=== PATIENT | female | born 1980 | race American Indian/Alaskan Native ===

== ENCOUNTER 2018-08-22 10:21 | Emergency (ER) | payer MEDICAID ==
[2018-08-22] MEDS ORDERED: IBUPROFEN PO ONE (11:38)
--- NOTE | 2018-08-22 11:39 | Emergency Department Report ---
HPI - General Chief Complaint: Chest Pain Time Seen by Provider: 08/22/18 11:20 - HPI HPI: This is a 38-year-old female with a history of hypertension 3 atenolol 50 mg daily presents ED complaining of chest pain for the past 2 days. Patient states chest pain is localized to her mid sternal chest area and describes as a dull ache type pain that the year with sitting or standing. Patient states that pain is worsened with walking short distances. Patient denies recent upper respiratory infection, coughing, fever, shortness of breath. ED Past Medical Hx - Past Medical History Previous Medical History?: Yes Hx Seizures: Yes - Surgical History Past Surgical History?: Yes Additional Surgical History: "thyroid surgery" & "cyst removal" - Social History Smoking Status: Never Smoker Substance Use Type: None - Medications Home Medications: Home Medications Medication Instructions Recorded Confirmed Last Taken Type Acetaminophen/Codeine 1 tab PO Q6H PRN #10 tab 07/17/14 Unknown Rx [Acetaminophen-Codeine #3 TAB] Promethazine [Phenergan] 25 mg PO Q6H PRN #10 tablet 07/17/14 Unknown Rx Cyclobenzaprine [Flexeril 10 MG 10 mg PO TID PRN #20 tablet 08/22/18 Unknown Rx TAB] Naproxen [Naprosyn] 500 mg PO BID #30 tablet 08/22/18 Unknown Rx ED Review of Systems ROS: Stated complaint: CHEST PAIN/ANKLE PAIN Other details as noted in HPI Constitutional: denies: chills, fever Eyes: denies: eye pain, eye discharge, vision change ENT: denies: ear pain, throat pain Respiratory: denies: cough, shortness of breath, wheezing Cardiovascular: chest pain. denies: palpitations Endocrine: no symptoms reported Gastrointestinal: denies: abdominal pain, nausea, diarrhea Genitourinary: denies: urgency, dysuria, discharge Musculoskeletal: denies: back pain, joint swelling, arthralgia Physical Exam - Physical Exam Vital Signs: Vital Signs 08/22/18 10:28 Temperature 97.7 F Pulse Rate 71 Respiratory 16 Rate Blood Pressure 140/92 O2 Sat by Pulse 98 Oximetry Physical Exam: GENERAL: Alert and oriented x3, no apparent distress, Normal Gait, atraumatic. HEAD: Head is normocephalic and a-traumatic. MOUTH:Mouth is well hydrated and without lesions. Tonsils nonerythematous or swollen, Uvula midline, Tongue not elevated. Mucous membranes are moist. Posterior pharynx clear, no exudate or lesions. Patent airways. NECK: Supple. Non edematous, No carotid bruits. No lymphadenopathy or thyromegaly. No C-spine tenderness LUNGS: Symetrical with respiration, No wheezing, no rales or crackles, CTAB. HEART: S1, S2 present, regular rate and rhythm without murmur, no rubs, no gallops. Non tender to palpation SKIN: Warm and dry, No lesions, No ulceration or induration present. ED Course Vital Signs 08/22/18 10:28 Temperature 97.7 F Pulse Rate 71 Respiratory 16 Rate Blood Pressure 140/92 O2 Sat by Pulse 98 Oximetry - Reevaluation(s) Reevaluation #1: Discussed with patient about her elevated d-dimer, discussed the patient will have to rule out PE. Patient understands instructions she is stable she is in no acute distress CTA pending 08/22/18 15:34 ED Medical Decision Making - Lab Data Result diagrams: 08/22/18 11:47 08/22/18 11:47 - Radiology Data Radiology results: report reviewed, image reviewed FINAL REPORT EXAM: CT ANGIO CHEST HISTORY: elev d dimer TECHNIQUE: Following IV administration of 100 cc of Omnipaque 350 axial helical imaging was performed through the chest with sagittal and coronal reformatted images and maximum intensity projection images obtained. Comparison: None FINDINGS: There is no evidence of infiltrate, pneumothorax or pleural fluid collection. The trachea and bronchi are patent. The heart appears to be enlarged. The thoracic aorta is normal caliber. There is no evidence of intrathoracic adenopathy. No filling defects are demonstrated within the pulmonary arteries to suggest the presence of pulmonary artery emboli. The visualized portion of the upper abdomen is unremarkable. The bony structures are unremarkable in appearance. IMPRESSION: 1. No evidence of an acute intrathoracic process. 2. No evidence of pulmonary artery emboli. 3. Cardiomegaly. Transcribed By: ED Dictated By: LOURDES RUBIO MD Electronically Authenticated By: LOURDES RUBIO MD Signed Date/Time: 08/22/18 4256 - Medical Decision Making This is a 38-year-old female presents with chest pain Labs ordered, chest x-ray ordered. Chest x-ray negative D-dimer elevated, CTA chest negative, see reported above of pulmonary embolism. Discussed with patient to follow up with her heart doctor theoretical physics teacher Dr. Cosme Patient is in no acute or respiratory distress. Vital signs are normal Patient did mention that she had her right ankle injury month in 2 days ago when she was seen at [facility]. Patient was followed up by her orthopedic institute in her primary care physician wanted a CT scan of her ankle. I discussed with the patient should is to follow-up with her orthopedic doctor and get an CT scan of her ankle outpatient. I did examine her ankle ankle was intact joint intact, mildly tender to palpation, patient is able to ambulate on her feet on her own. Patient states she understands instructions and will follow. The patient evidently new onset of symptoms or worsening symptoms return to the ED immediately Critical care attestation.: If time is entered above; I have spent that time in minutes in the direct care of this critically ill patient, excluding procedure time. ED Disposition Clinical Impression: Costochondral chest pain Disposition: TO HOME OR SELFCARE Is pt being admited?: No Does the pt Need Aspirin: No Condition: Stable Instructions: Chest Pain (ED), Costochondritis (ED) Additional Instructions: Make sure to follow up with the primary care physician as discussed. Take all your medications as you've been prescribed. If you have any worsening symptoms or develop new symptoms please return to ED immediately. Follow-up with your theoretical physics teacher Prescriptions: Cyclobenzaprine [Flexeril 10 MG TAB] 10 mg PO TID PRN #20 tablet PRN Reason: Muscle Spasm Naproxen [Naprosyn] 500 mg PO BID #30 tablet Referrals: RANJITH HAYES NP-C [Primary Care Provider] - 3-5 Days Forms: Work/School Release Form(ED) Time of Disposition: 17:58
[2018-08-22 12:04] LABS: Hematocrit 40.6 % (30.3-42.9); Hemoglobin 13.6 gm/dl (10.1-14.3); Mean Corpuscular HGB Conc 34 % (30-34); Mean Corpuscular Volume 86 fl (79-97); Platelet Count 486 K/mm3 (140-440); Red Blood Count 4.71 M/mm3 (3.65-5.03)
[2018-08-22 12:25] LABS: BUN/Creatinine Ratio 21; Blood Urea Nitrogen 17 mg/dL (7-17); Calcium 8.8 mg/dL (8.4-10.2); Hemolysis Index 17
--- NOTE | 2018-08-22 12:35 | XRay Report ---
ROUTINE CHEST, TWO VIEWS: HISTORY: chest pain. The trachea, heart, mediastinal contour, lung gerber and bony thorax are unremarkable. IMPRESSION: Unremarkable chest x-ray.
--- NOTE | 2018-08-22 17:34 | Cat Scan Report ---
FINAL REPORT EXAM: CT ANGIO CHEST HISTORY: elev d dimer TECHNIQUE: Following IV administration of 100 cc of Omnipaque 350 axial helical imaging was performe d through the chest with sagittal and coronal reformatted images and maximum intensity projection winsome ges obtained. Comparison: None FINDINGS: There is no evidence of infiltrate, pneumothorax or pleural fluid collection. The trachea and bronchi are patent. The heart appears to be enlarged. The thoracic aorta is normal caliber. There is no evidence of intrathoracic adenopathy. No filling defects are demonstrated within the pulmonary arteries to suggest the presence of pulmonar y artery emboli. The visualized portion of the upper abdomen is unremarkable. The bony structures are unremarkable in appearance. IMPRESSION: 1. No evidence of an acute intrathoracic process. 2. No evidence of pulmonary artery emboli. 3. Cardiomegaly.
[2018-08-22 18:29] VITALS: BP 136/88
== END 2018-08-22 18:27 | disposition home or self-care (01) ==
LOC: ED 10:21
DX: R07.1 Chest pain on breathing (principal)
CPT/HCPCS: 36415; 71046; 71275; 80048; 84484; 84703; 85027; 85379; 93005; 93010; 99284; Q9967

== ENCOUNTER 2019-07-28 12:02 | Emergency (ER) | payer MEDICAID ==
[2019-07-28] MEDS ORDERED: KETOROLAC 60 MG/2 ML INJ IVP ONE (13:14)
[2019-07-28] MEDS ORDERED: methylPREDNISolone Sod Succinate 125 MG/2 ML INJ IV ONE (13:14)
--- NOTE | 2019-07-28 13:14 | Emergency Department Report ---
ED General Adult HPI - General Chief complaint: Chest Pain Stated complaint: LFT SIDE TINGLE/CHEST PAIN Time Seen by Provider: 07/28/19 12:34 Source: patient Mode of arrival: Ambulatory Limitations: No Limitations - History of Present Illness Initial comments: Patient presents to emergency department for chief complaint of pain and numbness radiating from her neck into her left arm. She denies any recent injury to her neck but states that it you're ago she fell and hurt her neck. Patient also complains of diffuse chest pain at the present for the last couple days which she saw her rn outpatient surgery for a couple days ago. Denies shortness breath, abdominal pain, or headache. Patient states at times it is difficult to grab a cup with the left hand secondary to numbness and weakness in her left hand. Patient states this has been present for the last couple of months and has discussed it with her primary care physician. Severity scale (0 -10): 8 - Related Data Previous Rx's Medication Instructions Recorded Last Taken Type Acetaminophen/Codeine 1 tab PO Q6H PRN #10 tab 07/17/14 Unknown Rx [Acetaminophen-Codeine #3 TAB] Promethazine [Phenergan] 25 mg PO Q6H PRN #10 tablet 07/17/14 Unknown Rx Cyclobenzaprine [Flexeril 10 MG 10 mg PO TID PRN #20 tablet 08/22/18 Unknown Rx TAB] Naproxen [Naprosyn] 500 mg PO BID #30 tablet 08/22/18 Unknown Rx Ibuprofen [Motrin] 800 mg PO Q8HR PRN #30 tablet 07/28/19 Unknown Rx predniSONE [Deltasone] 20 mg PO DAILY #15 tablet 07/28/19 Unknown Rx Allergies Allergy/AdvReac Type Severity Reaction Status Date / Time No Known Allergies Allergy Unverified 07/17/14 15:34 ED Review of Systems ROS: Stated complaint: LFT SIDE TINGLE/CHEST PAIN Other details as noted in HPI Comment: All other systems reviewed and negative Constitutional: denies: chills, fever Eyes: denies: eye pain, eye discharge, vision change ENT: denies: ear pain, throat pain Respiratory: denies: cough, shortness of breath, wheezing Cardiovascular: denies: chest pain, palpitations Endocrine: no symptoms reported Gastrointestinal: denies: abdominal pain, nausea, diarrhea Genitourinary: denies: urgency, dysuria, discharge Musculoskeletal: denies: back pain, joint swelling, arthralgia Skin: denies: rash, lesions Neurological: denies: headache, weakness, paresthesias Psychiatric: denies: anxiety, depression Hematological/Lymphatic: denies: easy bleeding, easy bruising ED Past Medical Hx - Past Medical History Previous Medical History?: Yes Hx Seizures: Yes Additional medical history: tachycardia, palpitations. sees cardioligist - Surgical History Past Surgical History?: Yes Additional Surgical History: "thyroid surgery" & "cyst removal" - Social History Smoking Status: Never Smoker Substance Use Type: None - Medications Home Medications: Home Medications Medication Instructions Recorded Confirmed Last Taken Type Acetaminophen/Codeine 1 tab PO Q6H PRN #10 tab 07/17/14 Unknown Rx [Acetaminophen-Codeine #3 TAB] Promethazine [Phenergan] 25 mg PO Q6H PRN #10 tablet 07/17/14 Unknown Rx Cyclobenzaprine [Flexeril 10 MG 10 mg PO TID PRN #20 tablet 08/22/18 Unknown Rx TAB] Naproxen [Naprosyn] 500 mg PO BID #30 tablet 08/22/18 Unknown Rx Ibuprofen [Motrin] 800 mg PO Q8HR PRN #30 tablet 07/28/19 Unknown Rx predniSONE [Deltasone] 20 mg PO DAILY #15 tablet 07/28/19 Unknown Rx ED Physical Exam - General Limitations: No Limitations General appearance: alert, in no apparent distress - Head Head exam: Present: atraumatic, normocephalic - Eye Eye exam: Present: normal appearance, PERRL, EOMI - ENT ENT exam: Present: mucous membranes moist - Neck Neck exam: Present: normal inspection, other (able to re-create symptoms with tapping of the C-spine at the midline.) - Respiratory Respiratory exam: Present: normal lung sounds bilaterally. Absent: respiratory distress - Cardiovascular Cardiovascular Exam: Present: regular rate, normal rhythm. Absent: systolic murmur, diastolic murmur, rubs, gallop - GI/Abdominal GI/Abdominal exam: Present: soft, normal bowel sounds. Absent: distended, tenderness - Extremities Exam Extremities exam: Present: normal inspection - Back Exam Back exam: Present: normal inspection - Neurological Exam Neurological exam: Present: alert, oriented X3, CN II-XII intact. Absent: motor sensory deficit - Psychiatric Psychiatric exam: Present: normal affect, normal mood - Skin Skin exam: Present: warm, dry, intact, normal color. Absent: rash ED Course Vital Signs 07/28/19 07/28/19 07/28/19 12:25 14:55 15:00 Temperature 98.7 F Pulse Rate 78 73 Respiratory 16 17 Rate Blood Pressure 131/85 128/81 O2 Sat by Pulse 99 98 96 Oximetry 07/28/19 07/28/19 07/28/19 15:15 15:30 15:45 Temperature Pulse Rate 73 73 73 Respiratory 16 13 15 Rate Blood Pressure 128/81 133/83 133/83 O2 Sat by Pulse 97 98 97 Oximetry 07/28/19 07/28/19 07/28/19 16:00 16:15 16:30 Temperature Pulse Rate 77 72 74 Respiratory 16 15 27 H Rate Blood Pressure 128/77 128/77 126/79 O2 Sat by Pulse 92 97 91 Oximetry ED Medical Decision Making - Lab Data Result diagrams: 07/28/19 13:29 07/28/19 13:29 Lab Results 07/28/19 07/28/19 07/28/19 Range/Units 13:29 13:29 13:29 WBC 15.2 H (4.5-11.0) K/mm3 RBC 4.74 (3.65-5.03) M/mm3 Hgb 13.4 (10.1-14.3) gm/dl Hct 40.2 (30.3-42.9) % MCV 85 (79-97) fl MCH 28 (28-32) pg MCHC 33 (30-34) % RDW 14.9 (13.2-15.2) % Plt Count 534 H (140-440) K/mm3 Lymph % (Auto) 20.0 (13.4-35.0) % Bertie % (Auto) 5.4 (0.0-7.3) % Eos % (Auto) 1.2 (0.0-4.3) % Baso % (Auto) 1.2 (0.0-1.8) % Lymph # 3.0 (1.2-5.4) K/mm3 Bertie # 0.8 (0.0-0.8) K/mm3 Eos # 0.2 (0.0-0.4) K/mm3 Baso # 0.2 H (0.0-0.1) K/mm3 Seg Neutrophils % 72.2 H (40.0-70.0) % Seg Neutrophils # 11.0 H (1.8-7.7) K/mm3 PT 13.6 (12.2-14.9) Sec. INR 1.05 (0.87-1.13) APTT 27.1 (24.2-36.6) Sec. Sodium 136 L (137-145) mmol/L Potassium 4.3 (3.6-5.0) mmol/L Chloride 98.2 (98-107) mmol/L Carbon Dioxide 25 (22-30) mmol/L Anion Gap 17 mmol/L BUN 16 (7-17) mg/dL Creatinine 0.9 (0.7-1.2) mg/dL Estimated GFR > 60 ml/min BUN/Creatinine Ratio 18 % Glucose 83 (65-100) mg/dL Calcium 8.7 (8.4-10.2) mg/dL Total Bilirubin (0.1-1.2) mg/dL Direct Bilirubin (0-0.2) mg/dL Indirect Bilirubin mg/dL AST (5-40) units/L ALT (7-56) units/L Alkaline Phosphatase (35-129) units/L Troponin T < 0.010 (0.00-0.029) ng/mL Total Protein (6.3-8.2) g/dL Albumin (3.9-5) g/dL Albumin/Globulin Ratio % HCG, Qual (Negative) 07/28/19 07/28/19 07/28/19 Range/Units 13:29 13:29 16:11 WBC (4.5-11.0) K/mm3 RBC (3.65-5.03) M/mm3 Hgb (10.1-14.3) gm/dl Hct (30.3-42.9) % MCV (79-97) fl MCH (28-32) pg MCHC (30-34) % RDW (13.2-15.2) % Plt Count (140-440) K/mm3 Lymph % (Auto) (13.4-35.0) % Bertie % (Auto) (0.0-7.3) % Eos % (Auto) (0.0-4.3) % Baso % (Auto) (0.0-1.8) % Lymph # (1.2-5.4) K/mm3 Bertie # (0.0-0.8) K/mm3 Eos # (0.0-0.4) K/mm3 Baso # (0.0-0.1) K/mm3 Seg Neutrophils % (40.0-70.0) % Seg Neutrophils # (1.8-7.7) K/mm3 PT (12.2-14.9) Sec. INR (0.87-1.13) APTT (24.2-36.6) Sec. Sodium (137-145) mmol/L Potassium (3.6-5.0) mmol/L Chloride (98-107) mmol/L Carbon Dioxide (22-30) mmol/L Anion Gap mmol/L BUN (7-17) mg/dL Creatinine (0.7-1.2) mg/dL Estimated GFR ml/min BUN/Creatinine Ratio % Glucose (65-100) mg/dL Calcium (8.4-10.2) mg/dL Total Bilirubin 0.30 (0.1-1.2) mg/dL Direct Bilirubin < 0.2 (0-0.2) mg/dL Indirect Bilirubin 0.1 mg/dL AST 14 (5-40) units/L ALT 25 (7-56) units/L Alkaline Phosphatase 50 (35-129) units/L Troponin T < 0.010 (0.00-0.029) ng/mL Total Protein 7.2 (6.3-8.2) g/dL Albumin 4.2 (3.9-5) g/dL Albumin/Globulin Ratio 1.4 % HCG, Qual Negative (Negative) - EKG Data -: EKG Interpreted by Al EKG shows normal: sinus rhythm Rate: normal - Radiology Data Radiology results: report reviewed - Medical Decision Making Patient politely declined chest x-ray stating she just had one recently Results discussed in detail with the patient She states she has her appointment with her primary care physician tomorrow at [facility] Critical care attestation.: If time is entered above; I have spent that time in minutes in the direct care of this critically ill patient, excluding procedure time. ED Disposition Clinical Impression: Nonspecific chest pain, Cervical radiculopathy Disposition: DC- TO HOME OR SELFCARE Is pt being admited?: No Does the pt Need Aspirin: No Condition: Stable Instructions: Noncardiac Chest Pain (ED), Cervical Radiculopathy (ED) Additional Instructions: return if worse Referrals: [facility] [Provider Group] - 3-5 Days [facility] [Provider Group] - 3-5 Days Time of Disposition: 17:01
[2019-07-28 14:05] LABS: Basophils # (Auto) 0.2 K/mm3 (0.0-0.1); Basophils % (Auto) 1.2 % (0.0-1.8); Eosinophils # (Auto) 0.2 K/mm3 (0.0-0.4); Eosinophils % (Auto) 1.2 % (0.0-4.3); Hematocrit 40.2 % (30.3-42.9); Hemoglobin 13.4 gm/dl (10.1-14.3); Mean Corpuscular HGB Conc 33 % (30-34); Mean Corpuscular Volume 85 fl (79-97); Monocytes # (Auto) 0.8 K/mm3 (0.0-0.8); Monocytes % (Auto) 5.4 % (0.0-7.3); Platelet Count 534 K/mm3 (140-440); Red Blood Count 4.74 M/mm3 (3.65-5.03); Red Cell Distribution Width 14.9 % (13.2-15.2)
[2019-07-28 14:12] LABS: BUN/Creatinine Ratio 18; Blood Urea Nitrogen 16 mg/dL (7-17); Calcium 8.7 mg/dL (8.4-10.2); Hemolysis Index 14; INR 1.05 (0.87-1.13); Partial Thromboplastin Time 27.1 Sec. (24.2-36.6)
[2019-07-28 14:14] LABS: Alanine Aminotransferase 25 units/L (7-56); Albumin 4.2 g/dL (3.9-5)
[2019-07-28 14:18] LABS: Bilirubin,Direct < 0.2 mg/dL (0-0.2)
--- NOTE | 2019-07-28 15:09 | XRay Report ---
CERVICAL SPINE, 4 VIEWS INDICATION: cervical radiculopathy UPT. COMPARISON: None. IMPRESSION: Normal alignment. No significant discogenic DJD or facet arthropathy. No acute osseous or soft tissue abnormality. Signer Name: Del Godinez Jr, MD Signed: 07/28/2019 3:05 PM Workstation Name: [id number]
[2019-07-28 16:54] VITALS: BP 126/79
== END 2019-07-28 17:14 | disposition home or self-care (01) ==
LOC: ED 12:02
DX: M54.12 Radiculopathy, cervical region (principal); R07.89 Other chest pain; G40.909 Epilepsy, unspecified, not intractable, without status epilepticus; R00.0 Tachycardia, unspecified; Z79.1 Long term (current) use of non-steroidal anti-inflammatories (NSAID); Z79.899 Other long term (current) drug therapy
CPT/HCPCS: 36415; 72040; 80048; 80076; 84484; 84703; 85025; 85610; 85730; 93005; 93010; 96374; 96375; 99284; J1885; J2930

== ENCOUNTER 2020-04-25 20:45 | Emergency (ER) | payer SELFPAY ==
--- NOTE | 2020-04-25 20:47 | Emergency Department Report ---
Blank Doc - Documentation Documentation: 39-year-old female that presents with body aches, flank pain and hematuria. This initial assessment/diagnostic orders/clinical plan/treatment(s) is/are subject to change based on patient's health status, clinical progression and re- assessment by fellow clinical providers in the ED. Further treatment and workup at subsequent clinical providers discretion. Patient/guardians urged not to elope from the ED as their condition may be serious if not clinically assessed and managed. Initial orders include: 1- Patient sent to [facility] for further evaluation and treatment 2- labs 3- UA
[2020-04-25 21:20] LABS: Basophils # (Auto) 0.1 K/mm3 (0.0-0.1); Eosinophils # (Auto) 0.1 K/mm3 (0.0-0.4); Eosinophils % (Auto) 1.1 % (0.0-4.3); Hematocrit 35.9 % (30.3-42.9); Hemoglobin 12.9 gm/dl (10.1-14.3); Lymphocytes # (Auto) 2.3 K/mm3 (1.2-5.4); Lymphocytes % (Auto) 18.1 % (13.4-35.0); Mean Corpuscular HGB Conc 36 % (30-34); Mean Corpuscular Volume 84 fl (79-97); Monocytes # (Auto) 1.3 K/mm3 (0.0-0.8); Monocytes % (Auto) 10.4 % (0.0-7.3); Platelet Count 513 K/mm3 (140-440); Red Blood Count 4.29 M/mm3 (3.65-5.03); Red Cell Distribution Width 14.7 % (13.2-15.2)
[2020-04-25 21:37] LABS: Bilirubin,Urine NEG (Negative); Blood,Urine MOD (Negative); Color,Urine Yellow (Yellow); Mucus,Urine FEW /HPF; Protein,Urine <15 mg/dL mg/dL (Negative); WBC,Urine > 182.0 /HPF (0.0-6.0)
[2020-04-25 21:40] LABS: BUN/Creatinine Ratio 20; Blood Urea Nitrogen 16 mg/dL (7-17); Calcium 8.9 mg/dL (8.4-10.2); Hemolysis Index 5
[2020-04-25] MEDS ORDERED: cefTRIAXone/NS 1 GM/50 ML 1 GM/50 ML BAG IV ONE (22:13)
[2020-04-25] MEDS ORDERED: SODIUM CHLORIDE 0.9% 1000 ML 1,000 ML IV ONE (22:13)
[2020-04-25] MEDS ORDERED: KETOROLAC 30 MG/1 ML INJ IV ONE (22:13)
--- NOTE | 2020-04-25 23:28 | Emergency Department Report ---
ED Abdominal Pain HPI - General Chief Complaint: Pain General Stated Complaint: BODY PAIN,BLOOD IN URINE Time Seen by Provider: 04/25/20 20:46 Source: patient Mode of arrival: Ambulatory Limitations: No Limitations - History of Present Illness Initial Comments: Patient is a 39-year-old -Maur[place] female with a history of seizures who presents to the ED with complaint of acute onset persistent severe diffuse body aches and pains, dysuria, urinary frequency and urgency, left flank pain and suprapubic pressure for the last 2 days, worse in the last 12 hours. Patient denies vaginal bleeding, vaginal discharge, dyspareunia, dizziness, syncope, f ever, chills, nausea and vomiting, diarrhea, sore throat, chest pain or shortness of breath, headache, change in vision or palpitations. MD Complaint: abdominal pain, flank pain (left ), other (lower back pain) -: Sudden, days(s) (2) Location: suprapubic (pressure), L flank Radiation: suprapubic, back (lower) Migration to: no migration Severity: severe Severity scale (0 -10): 10 Quality: aching, sharp Consistency: constant Improves With: nothing Worsens With: nothing Associated Symptoms: denies other symptoms, nausea, dysuria, anorexia. denies: vomiting, diarrhea, fever, chills, constipation, hematemesis, hematochezia, melena, hematuria, syncope - Related Data LMP (females 10-50): 3 weeks Previous Rx's Medication Instructions Recorded Last Taken Type Acetaminophen/Codeine 1 tab PO Q6H PRN #10 tab 07/17/14 Unknown Rx [Acetaminophen-Codeine #3 TAB] Promethazine [Phenergan] 25 mg PO Q6H PRN #10 tablet 07/17/14 Unknown Rx Cyclobenzaprine [Flexeril 10 MG 10 mg PO TID PRN #20 tablet 08/22/18 Unknown Rx TAB] Naproxen [Naprosyn] 500 mg PO BID #30 tablet 08/22/18 Unknown Rx predniSONE [Deltasone] 20 mg PO DAILY #15 tablet 07/28/19 Unknown Rx Ibuprofen [Motrin 800 MG tab] 800 mg PO Q8HR PRN #30 tablet 04/25/20 Unknown Rx Ondansetron [Zofran Odt] 4 mg PO Q6HR PRN #20 tab.rapdis 04/25/20 Unknown Rx cephALEXin [Keflex] 500 mg PO Q6HR #40 capsule 04/25/20 Unknown Rx Allergies Allergy/AdvReac Type Severity Reaction Status Date / Time No Known Allergies Allergy Unverified 07/17/14 15:34 ED Review of Systems ROS: Stated complaint: BODY PAIN,BLOOD IN URINE Other details as noted in HPI Constitutional: chills, malaise, weakness. denies: fever Eyes: denies: eye pain, eye discharge, vision change ENT: denies: ear pain, throat pain Respiratory: denies: cough, shortness of breath, wheezing Cardiovascular: denies: chest pain, palpitations Endocrine: no symptoms reported Gastrointestinal: abdominal pain (left flank pain). denies: nausea, vomiting, diarrhea, constipation, hematemesis, melena, hematochezia Genitourinary: urgency, dysuria, frequency, hematuria. denies: discharge Musculoskeletal: back pain, arthralgia, myalgia. denies: joint swelling Skin: denies: rash, lesions Neurological: denies: headache, weakness, paresthesias Psychiatric: denies: anxiety, depression Hematological/Lymphatic: denies: easy bleeding, easy bruising ED Past Medical Hx - Past Medical History Previous Medical History?: Yes Hx Seizures: Yes Additional medical history: tachycardia, palpitations. sees cardioligist - Surgical History Past Surgical History?: Yes Additional Surgical History: "thyroid surgery" & "cyst removal", TUBILIGATION - Social History Smoking Status: Never Smoker Substance Use Type: None - Medications Home Medications: Home Medications Medication Instructions Recorded Confirmed Last Taken Type Acetaminophen/Codeine 1 tab PO Q6H PRN #10 tab 07/17/14 Unknown Rx [Acetaminophen-Codeine #3 TAB] Promethazine [Phenergan] 25 mg PO Q6H PRN #10 tablet 07/17/14 Unknown Rx Cyclobenzaprine [Flexeril 10 MG 10 mg PO TID PRN #20 tablet 08/22/18 Unknown Rx TAB] Naproxen [Naprosyn] 500 mg PO BID #30 tablet 08/22/18 Unknown Rx predniSONE [Deltasone] 20 mg PO DAILY #15 tablet 07/28/19 Unknown Rx Ibuprofen [Motrin 800 MG tab] 800 mg PO Q8HR PRN #30 tablet 04/25/20 Unknown Rx Ondansetron [Zofran Odt] 4 mg PO Q6HR PRN #20 tab.rapdis 04/25/20 Unknown Rx cephALEXin [Keflex] 500 mg PO Q6HR #40 capsule 04/25/20 Unknown Rx ED Physical Exam - General Limitations: No Limitations General appearance: alert, in no apparent distress - Head Head exam: Present: atraumatic, normocephalic, normal inspection - Eye Eye exam: Present: normal appearance, PERRL, EOMI Pupils: Present: normal accommodation - ENT ENT exam: Present: normal exam, normal orophraynx, mucous membranes moist, TM's normal bilaterally, normal external ear exam - Neck Neck exam: Present: normal inspection, full ROM - Respiratory Respiratory exam: Present: normal lung sounds bilaterally. Absent: respiratory distress, wheezes, rales, rhonchi, chest wall tenderness, accessory muscle use, prolonged expiratory - Cardiovascular Cardiovascular Exam: Present: regular rate, normal rhythm, normal heart sounds. Absent: systolic murmur, diastolic murmur, rubs, gallop - GI/Abdominal GI/Abdominal exam: Present: soft, tenderness (Palpable left flank tenderness), normal bowel sounds. Absent: guarding, rebound, hyperactive bowel sounds, hypoactive bowel sounds - Extremities Exam Extremities exam: Present: normal inspection, full ROM, normal capillary refill - Back Exam Back exam: Present: normal inspection, full ROM. Absent: tenderness, CVA tenderness (R), muscle spasm, paraspinal tenderness, vertebral tenderness - Neurological Exam Neurological exam: Present: alert, oriented X3, CN II-XII intact, normal gait, reflexes normal - Psychiatric Psychiatric exam: Present: normal affect, normal mood - Skin Skin exam: Present: warm, dry, intact, normal color. Absent: rash ED Course Vital Signs 04/25/20 20:49 Temperature 98 F Pulse Rate 84 Respiratory 18 Rate Blood Pressure 122/75 O2 Sat by Pulse 100 Oximetry ED Medical Decision Making - Lab Data Result diagrams: 04/25/20 21:01 04/25/20 21:01 - Medical Decision Making This is a 39-year-old -Maur[place] female with a history of seizures who presents to the ED with complaint of acute onset persistent severe diffuse body aches and pains, dysuria, urinary frequency and urgency, left flank pain and suprapubic pressure for the last 2 days, worse in the last 12 hours. In the ED, patient is alert and oriented x3 and is not in any distress but appears to be in pain. Lab test results were reviewed and are all nonactionable except for acute leukocytosis of 12,500, mild hyponatremia of 134 mmol/L and significant urinary tract infection and urinalysis characterized by large leukocyte esterase and >182 WBCs. Patient was treated in the ED with normal saline 1 L IV bolus x1, antiemetics, pain medication and also started on Rocephin 1 g IV x1. On reevaluation, patient's pain is well controlled medications. Patient was discharged home on pain medications and oral antibiotics and was advised to follow-up with her primary care physician in 5 to 7 days for reevaluation or return to the ED immediately if symptoms get worse. - Differential Diagnosis UTI, muscle spasm, pyelonephritis, colitis, ovarian cyst, kidney stones Critical care attestation.: If time is entered above; I have spent that time in minutes in the direct care of this critically ill patient, excluding procedure time. ED Disposition Clinical Impression: Acute abdominal pain in left flank, Acute urinary tract infection Disposition: DC- TO HOME OR SELFCARE Is pt being admited?: No Does the pt Need Aspirin: No Condition: Stable Instructions: Flank Pain (ED), Urinary Tract Infection in Women (ED) Additional Instructions: Take medication with food, drink plenty of fluids and follow-up with your primary care physician in 5 to 7 days for reevaluation. Return to the ED immediately if symptoms get worse. Prescriptions: cephALEXin [Keflex] 500 mg PO Q6HR #40 capsule Ibuprofen [Motrin 800 MG tab] 800 mg PO Q8HR PRN #30 tablet PRN Reason: Pain Ondansetron [Zofran Odt] 4 mg PO Q6HR PRN #20 tab.rapdis PRN Reason: Nausea Referrals: [facility] [Provider Group] - 3-5 Days Time of Disposition: 23:28 Print Language: ZIMBABWEAN
[2020-04-26 00:09] VITALS: BP 126/80
== END 2020-04-26 00:08 | disposition home or self-care (01) ==
LOC: ED 20:45
DX: N39.0 Urinary tract infection, site not specified (principal)
CPT/HCPCS: 36415; 80048; 81001; 84703; 85025; 96361; 96365; 96375; 99283; J0696; J1885; J7030

== ENCOUNTER 2020-05-28 05:49 | Emergency (ER) | payer SELFPAY ==
[2020-05-28 06:04] VITALS: BP 132/85
[2020-05-28 06:33] LABS: Bilirubin,Urine NEG (Negative); Blood,Urine SM (Negative); Color,Urine Yellow (Yellow); Mucus,Urine FEW /HPF; Protein,Urine <15 mg/dL mg/dL (Negative); Urobilinogen,Urine < 2.0 mg/dL (<2.0)
[2020-05-28 06:35] LABS: HCG Qualitative,Urine Negative (Negative)
--- NOTE | 2020-05-28 07:42 | XRay Report ---
CERVICAL SPINE 4 VIEWS INDICATION / CLINICAL INFORMATION: left neck and shoulder pain. COMPARISON: 07/28/2019 FINDINGS: No fracture, subluxation or other significant abnormality. No interval change. Signer Name: Humberto Cornelius MD Signed: 05/28/2020 7:37 AM Workstation Name: [id number]
--- NOTE | 2020-05-28 08:50 | Emergency Department Report ---
ED Neck Pain/Injury HPI - General Chief Complaint: Neck Pain/Injury Stated Complaint: UTI,LEFT SIDE PAIN Time Seen by Provider: 05/28/20 07:29 Mode of arrival: Ambulatory Limitations: No Limitations - History of Present Illness Initial Comments: 40-year-old -Nepalese female presents to the emergency room complaining of left neck and left shoulder pain with left arm pain that is radiated to the distal fingers x1 month. Patient also states that she was treated for urinary tract infection 1 month ago but continues to have pelvic pressure with urination. Patient reports urinary urgency. She denies any fever no chills no nausea no vomiting no vaginal discharge no vaginal bleeding or hematuria. She states that she has a backache and back pain. 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 She does have a primary care provider her last menstrual period was 05/23/2020. Complaint: neck pain Onset/Timin -: week(s) (4 weeks for urinary tract infection), month(s) (Neck) Radiation: left lateral Severity scale (0 -10): 10 Quality: sharp, tingling Consistency: intermittent Improves With: none Worsens With: none Associated Symptoms: tingling Treatments Prior to Arrival: none - Related Data Previous Rx's Medication Instructions Recorded Last Taken Type Acetaminophen/Codeine 1 tab PO Q6H PRN #10 tab 07/17/14 Unknown Rx [Acetaminophen-Codeine #3 TAB] Promethazine [Phenergan] 25 mg PO Q6H PRN #10 tablet 07/17/14 Unknown Rx Cyclobenzaprine [Flexeril 10 MG 10 mg PO TID PRN #20 tablet 08/22/18 Unknown Rx TAB] Naproxen [Naprosyn] 500 mg PO BID #30 tablet 08/22/18 Unknown Rx predniSONE [Deltasone] 20 mg PO DAILY #15 tablet 07/28/19 Unknown Rx Ibuprofen [Motrin 800 MG tab] 800 mg PO Q8HR PRN #30 tablet 04/25/20 Unknown Rx Ondansetron [Zofran Odt] 4 mg PO Q6HR PRN #20 tab.rapdis 04/25/20 Unknown Rx cephALEXin [Keflex] 500 mg PO Q6HR #40 capsule 04/25/20 Unknown Rx Meloxicam [Mobic] 7.5 mg PO QDAY #30 tablet 05/28/20 Unknown Rx Allergies Allergy/AdvReac Type Severity Reaction Status Date / Time No Known Allergies Allergy Unverified 07/17/14 15:34 ED Review of Systems ROS: Stated complaint: UTI,LEFT SIDE PAIN Other details as noted in HPI Comment: All other systems reviewed and negative ED Past Medical Hx - Past Medical History Previous Medical History?: Yes Hx Seizures: Yes Additional medical history: tachycardia, palpitations. sees cardioligist - Surgical History Past Surgical History?: Yes Additional Surgical History: "thyroid surgery" & "cyst removal", TUBILIGATION, - Social History Smoking Status: Never Smoker Substance Use Type: None - Medications Home Medications: Home Medications Medication Instructions Recorded Confirmed Last Taken Type Acetaminophen/Codeine 1 tab PO Q6H PRN #10 tab 07/17/14 Unknown Rx [Acetaminophen-Codeine #3 TAB] Promethazine [Phenergan] 25 mg PO Q6H PRN #10 tablet 07/17/14 Unknown Rx Cyclobenzaprine [Flexeril 10 MG 10 mg PO TID PRN #20 tablet 08/22/18 Unknown Rx TAB] Naproxen [Naprosyn] 500 mg PO BID #30 tablet 08/22/18 Unknown Rx predniSONE [Deltasone] 20 mg PO DAILY #15 tablet 07/28/19 Unknown Rx Ibuprofen [Motrin 800 MG tab] 800 mg PO Q8HR PRN #30 tablet 04/25/20 Unknown Rx Ondansetron [Zofran Odt] 4 mg PO Q6HR PRN #20 tab.rapdis 04/25/20 Unknown Rx cephALEXin [Keflex] 500 mg PO Q6HR #40 capsule 04/25/20 Unknown Rx Meloxicam [Mobic] 7.5 mg PO QDAY #30 tablet 05/28/20 Unknown Rx ED Physical Exam - General Limitations: No Limitations General appearance: alert, in no apparent distress - Head Head exam: Present: atraumatic, normocephalic - Eye Eye exam: Present: normal appearance - ENT ENT exam: Present: mucous membranes moist - Neck Neck exam: Present: normal inspection - Respiratory Respiratory exam: Present: normal lung sounds bilaterally. Absent: respiratory distress - Cardiovascular Cardiovascular Exam: Present: regular rate, normal rhythm. Absent: systolic murmur, diastolic murmur, rubs, gallop - GI/Abdominal GI/Abdominal exam: Present: soft, tenderness (Suprapubic), normal bowel sounds. Absent: distended - Extremities Exam Extremities exam: Present: normal inspection, full ROM - Back Exam Back exam: Present: normal inspection - Neurological Exam Neurological exam: Present: alert, oriented X3 - Psychiatric Psychiatric exam: Present: normal affect, normal mood - Skin Skin exam: Present: warm, dry, intact, normal color. Absent: rash ED Course Vital Signs 05/28/20 05:58 Temperature 98.6 F Pulse Rate 89 Respiratory 18 Rate Blood Pressure 132/85 O2 Sat by Pulse 96 Oximetry ED Medical Decision Making - Radiology Data Radiology results: report reviewed XRay Report Signed Patient: LACIE WOODS MR#: [id number] 0 : 1980 Acct:[id number] Age/Sex: 40 / F ADM Date: 05/28/20 Loc: ED Attending Dr: Ordering Physician: Deb Pritchard MD Date of Service: 05/28/20 Procedure(s): XR spine cervical 2-3V Accession Number(s): [id number] cc: Deb Pritchard MD Fluoro Time In Minutes: CERVICAL SPINE 4 VIEWS INDICATION / CLINICAL INFORMATION: left neck and shoulder pain. COMPARISON: 07/28/2019 FINDINGS: No fracture, subluxation or other significant abnormality. No interval change. Signer Name: Humberto Cornelius MD Signed: 05/28/2020 7:37 AM Workstation Name: [id number] Transcribed By: TM Dictated By: Humberto Cornelius MD Electronically Authenticated By: Humberto Cornelius MD Signed Date/Time: 05/28/20 0737 DD/ TD/TT: - Medical Decision Making 40-year-old -N[place]alese female presents to the emergency room complaining of left neck and left shoulder pain with left arm pain that is radiated to the distal fingers x1 month. Patient also states that she was treated for urinary tract infection 1 month ago but continues to have pelvic pressure with urination. Patient reports urinary urgency. She denies any fever no chills no nausea no vomiting no vaginal discharge no vaginal bleeding or hematuria. She states that she has a backache and back pain. 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 She does have a primary care provider her last menstrual period was 05/23/2020. X-ray cervical is negative for any acute fractures or subluxations. I do recommend patient to get a MRI from orthopedics. Her urine is negative for any urinary tract infection I recommend to follow-up with her [facility] SECRETARY RECEPTIONIST for further evaluation. Patient has had a tubal ligation with a in the past. Patient can take Mobic 7.5 mg daily and to follow-up with an MEDICAL SECRETARY RECEPTIONIST. Critical care attestation.: If time is entered above; I have spent that time in minutes in the direct care of this critically ill patient, excluding procedure time. ED Disposition Clinical Impression: Cervical strain, acute, Pelvic pressure in female Disposition: DC- TO HOME OR SELFCARE Is pt being admited?: No Does the pt Need Aspirin: No Condition: Stable Additional Instructions: X-ray of neck shows no acute abnormalities I highly recommend following up with a neurologist for further evaluation. I have listed Dr. Baker information below. Your urine is clear there is no signs of infection I recommend following up with a [facility]ICAL SECRETARY RECEPTIONIST I have listed several below for your convenience. I have also given you a prescription for Mobic which is a Gonzalez 2 inhibitor for pain medicine you just take it once a day with food. Prescriptions: Meloxicam [Mobic] 7.5 mg PO QDAY #30 tablet Referrals: ELENA BAKER II, MD [Staff Physician] - 3-5 Days [facility] [Provider Group] - 3-5 Days [facility] [Provider Group] - 3-5 Days [facility] [Provider Group] - 3-5 Days Forms: Work/School Release Form(ED)
== END 2020-05-28 09:24 | disposition home or self-care (01) ==
LOC: ED 05:49
DX: S16.1XXA Strain of muscle, fascia and tendon at neck level, initial encounter (principal); R10.2 Pelvic and perineal pain; G40.909 Epilepsy, unspecified, not intractable, without status epilepticus; Z79.899 Other long term (current) drug therapy; Z98.890 Other specified postprocedural states; X58.XXXA Exposure to other specified factors, initial encounter; Y93.89 Activity, other specified; Y92.89 Other specified places as the place of occurrence of the external cause; Y99.8 Other external cause status
CPT/HCPCS: 72040; 81001; 81025; 99283

== ENCOUNTER 2020-07-27 08:55 | Emergency (ER) | payer MEDICAID, OTHER ==
[2020-07-27 09:30] VITALS: BP 130/97
[2020-07-27] MEDS ORDERED: ASPIRIN 325 MG TAB PO ONE (09:40)
--- NOTE | 2020-07-27 10:29 | XRay Report ---
CHEST 2 VIEWS INDICATION / CLINICAL INFORMATION: Chest Pain. COMPARISON: Chest 2 views and CTA chest from 08/22/2018. FINDINGS: SUPPORT DEVICES: None. HEART / MEDIASTINUM: No significant abnormality. LUNGS / PLEURA: No significant pulmonary or pleural abnormality. No pneumothorax. ADDITIONAL FINDINGS: No significant additional findings. IMPRESSION: 1. No acute abnormality of the chest. Signer Name: Aly Wells MD Signed: 07/27/2020 10:25 AM Workstation Name: [id number]
[2020-07-27 11:01] LABS: Basophils % (Auto) 0.3 % (0.0-1.8); Eosinophils # (Auto) 0.2 K/mm3 (0.0-0.4); Eosinophils % (Auto) 2.9 % (0.0-4.3); Hematocrit 38.7 % (30.3-42.9); Hemoglobin 13.5 gm/dl (10.1-14.3); Lymphocytes # (Auto) 1.9 K/mm3 (1.2-5.4); Lymphocytes % (Auto) 30.2 % (13.4-35.0); Mean Corpuscular HGB Conc 35 % (30-34); Mean Corpuscular Volume 83 fl (79-97); Monocytes # (Auto) 0.5 K/mm3 (0.0-0.8); Monocytes % (Auto) 8.7 % (0.0-7.3); Platelet Count 483 K/mm3 (140-440); Red Blood Count 4.68 M/mm3 (3.65-5.03)
[2020-07-27 11:17] LABS: BUN/Creatinine Ratio 11; Blood Urea Nitrogen 9 mg/dL (7-17); Calcium 9.2 mg/dL (8.4-10.2); Hemolysis Index 3
--- NOTE | 2020-07-27 12:04 | Emergency Department Report ---
ED Chest Pain HPI - General Chief Complaint: Chest Pain Stated Complaint: BP HIGH AND CHEST PAIN PUI?: No Time Seen by Provider: 07/27/20 12:01 Source: patient Mode of arrival: Ambulatory Limitations: No Limitations - History of Present Illness Initial Comments: Patient is a 40-year-old -[place] female who comes to the ER today complaining of chest pain in triage. However, when she got to [facility] she said that she was here because she was concerned because her blood pressure has been trending upwards. She is on antihypertensives for her blood pressure. She did not see her PCP. She did not call her PCP. Her mother stated that she should be checked this morning so she presented to the ER. Patient denies chest pain, shortness of breath, chills, fever, abdominal pain. She denies any neurological symptoms. She is ambulatory and nontoxic on arrival to [facility]. MD Complaint: chest pain Pain Radiation: none Improves With: nothing Worsens With: nothing Aspirin use within the Past 7 Days: (0) No - Related Data On Oral Contraceptives: No Previous Rx's Medication Instructions Recorded Last Taken Type Acetaminophen/Codeine 1 tab PO Q6H PRN #10 tab 07/17/14 Unknown Rx [Acetaminophen-Codeine #3 TAB] Promethazine [Phenergan] 25 mg PO Q6H PRN #10 tablet 07/17/14 Unknown Rx Cyclobenzaprine [Flexeril 10 MG 10 mg PO TID PRN #20 tablet 08/22/18 Unknown Rx TAB] Naproxen [Naprosyn] 500 mg PO BID #30 tablet 08/22/18 Unknown Rx predniSONE [Deltasone] 20 mg PO DAILY #15 tablet 07/28/19 Unknown Rx Ibuprofen [Motrin 800 MG tab] 800 mg PO Q8HR PRN #30 tablet 04/25/20 Unknown Rx Ondansetron [Zofran Odt] 4 mg PO Q6HR PRN #20 tab.rapdis 04/25/20 Unknown Rx cephALEXin [Keflex] 500 mg PO Q6HR #40 capsule 04/25/20 Unknown Rx Meloxicam [Mobic] 7.5 mg PO QDAY #30 tablet 05/28/20 Unknown Rx Allergies Allergy/AdvReac Type Severity Reaction Status Date / Time No Known Allergies Allergy Unverified 07/17/14 15:34 Heart Score - HEART Score History: Slightly suspicious EKG: Normal Age: < 45 Risk factors: > 3 risk factors or hx of atherosclerotic disease Troponin: < normal limit HEART Score: 2 ED Review of Systems ROS: Stated complaint: BP HIGH AND CHEST PAIN Other details as noted in HPI Comment: All other systems reviewed and negative ED Past Medical Hx - Past Medical History Previous Medical History?: Yes Hx Hypertension: Yes Hx Seizures: Yes Additional medical history: tachycardia, palpitations. sees cardioligist, hld - Surgical History Past Surgical History?: Yes Additional Surgical History: "thyroid surgery" & "cyst removal", TUBILIGATION, - Social History Smoking Status: Never Smoker Substance Use Type: None - Medications Home Medications: Home Medications Medication Instructions Recorded Confirmed Last Taken Type Acetaminophen/Codeine 1 tab PO Q6H PRN #10 tab 07/17/14 Unknown Rx [Acetaminophen-Codeine #3 TAB] Promethazine [Phenergan] 25 mg PO Q6H PRN #10 tablet 07/17/14 Unknown Rx Cyclobenzaprine [Flexeril 10 MG 10 mg PO TID PRN #20 tablet 08/22/18 Unknown Rx TAB] Naproxen [Naprosyn] 500 mg PO BID #30 tablet 08/22/18 Unknown Rx predniSONE [Deltasone] 20 mg PO DAILY #15 tablet 07/28/19 Unknown Rx Ibuprofen [Motrin 800 MG tab] 800 mg PO Q8HR PRN #30 tablet 04/25/20 Unknown Rx Ondansetron [Zofran Odt] 4 mg PO Q6HR PRN #20 tab.rapdis 04/25/20 Unknown Rx cephALEXin [Keflex] 500 mg PO Q6HR #40 capsule 04/25/20 Unknown Rx Meloxicam [Mobic] 7.5 mg PO QDAY #30 tablet 05/28/20 Unknown Rx ED Physical Exam - General Limitations: No Limitations General appearance: alert, in no apparent distress - Head Head exam: Present: atraumatic, normocephalic - Eye Eye exam: Present: normal appearance - ENT ENT exam: Present: mucous membranes moist - Neck Neck exam: Present: normal inspection - Respiratory Respiratory exam: Present: normal lung sounds bilaterally. Absent: respiratory distress - Cardiovascular Cardiovascular Exam: Present: regular rate, normal rhythm. Absent: systolic murmur, diastolic murmur, rubs, gallop - GI/Abdominal GI/Abdominal exam: Present: soft, normal bowel sounds - Extremities Exam Extremities exam: Present: normal inspection - Back Exam Back exam: Present: normal inspection - Neurological Exam Neurological exam: Present: alert, oriented X3 - Psychiatric Psychiatric exam: Present: normal affect, normal mood - Skin Skin exam: Present: warm, dry, intact, normal color. Absent: rash ED Course Vital Signs 07/27/20 09:27 Temperature 98.2 F Pulse Rate 76 Respiratory 18 Rate Blood Pressure 130/97 O2 Sat by Pulse 96 Oximetry MAYUR score - Mayur Score Age > 65: (0) No Aspirin use within the Past 7 Days: (0) No 3 or more CAD Risk Factors: (1) Yes 2 or more Angina events in past 24 hrs: (0) No Known CAD with more than 50% Stenosis: (0) No Elevated Cardiac Markers: (0) No ST Deviation Greater than 0.5mm: (0) No MAYUR Score: 1 ED Medical Decision Making - Lab Data Result diagrams: 07/27/20 10:30 07/27/20 10:30 - EKG Data -: EKG Interpreted by [facility] EKG shows normal: sinus rhythm Rate: normal - EKG Data When compared to previous EKG there are: no significant change Interpretation: no acute changes - Radiology Data Radiology results: report reviewed, image reviewed No acute process - Medical Decision Making Vital Signs (72 hours) 07/27/20 09:27 Temperature 98.2 F Pulse Rate 76 Respiratory 18 Rate Blood Pressure 130/97 O2 Sat by Pulse 96 Oximetry Vital Signs 07/27/20 09:27 Temperature 98.2 F Pulse Rate 76 Respiratory 18 Rate Blood Pressure 130/97 O2 Sat by Pulse 96 Oximetry Lab Results 07/27/20 07/27/20 Range/Units 10:30 10:30 WBC 6.2 (4.5-11.0) K/mm3 RBC 4.68 (3.65-5.03) M/mm3 Hgb 13.5 (10.1-14.3) gm/dl Hct 38.7 (30.3-42.9) % MCV 83 (79-97) fl MCH 29 (28-32) pg MCHC 35 H (30-34) % RDW 15.0 (13.2-15.2) % Plt Count 483 H (140-440) K/mm3 Lymph % (Auto) 30.2 (13.4-35.0) % [place] % (Auto) 8.7 H (0.0-7.3) % Eos % (Auto) 2.9 (0.0-4.3) % Baso % (Auto) 0.3 (0.0-1.8) % Lymph # (Auto) 1.9 (1.2-5.4) K/mm3 [place] # (Auto) 0.5 (0.0-0.8) K/mm3 Eos # (Auto) 0.2 (0.0-0.4) K/mm3 Baso # (Auto) 0.0 (0.0-0.1) K/mm3 Seg Neutrophils % 57.9 (40.0-70.0) % Seg Neutrophils # 3.6 (1.8-7.7) K/mm3 Sodium 139 (137-145) mmol/L Potassium 4.2 (3.6-5.0) mmol/L Chloride 102.6 (98-107) mmol/L Carbon Dioxide 28 (22-30) mmol/L Anion Gap 13 mmol/L BUN 9 (7-17) mg/dL Creatinine 0.8 (0.6-1.2) mg/dL Estimated GFR > 60 ml/min BUN/Creatinine Ratio 11 % Glucose 87 (65-100) mg/dL Calcium 9.2 (8.4-10.2) mg/dL Troponin T < 0.010 (0.00-0.029) ng/mL On arrival to [facility] patient states that she is not having chest pain. She was just concerned because her blood pressure was elevated. She is on atenolol and HCTZ. Both of which the patient states that she is taking. However, the patient states that her blood pressure has been trending up at home. Patient was reassured that her blood pressure was just mildly elevated on arrival to the ER. Patient does not have any symptoms. She denies chest pain or shortness of breath. She denies fever or chills. She denies cough. All of her labs as ordered by triage were normal. There is no indication of endorgan function. Troponin was negative. Twelve-lead shows no acute changes. I have reassured patient and told her that she needs to follow-up with her primary care. She should take a recorded log of her blood pressures taken at the same time every day using the same machine to her PCP. I have reeducated her about low-sodium DASH diet. And also her weight. Patient is obese. I told her that controlling her diet and activity will help her to not have to increase her blood pressure medications. On initial and on reexam in [facility] patient had no focal deficit and no complaints. Patient being discharged home with PCP follow-up. She verbalizes understanding of her discharge plan of care including medications, follow-up, diet and activity. - Differential Diagnosis Hypertension acute on chronic Critical care attestation.: If time is entered above; I have spent that time in minutes in the direct care of this critically ill patient, excluding procedure time. ED Disposition Clinical Impression: Hypertension Disposition: DC-01 TO HOME OR SELFCARE Is pt being admited?: No Does the pt Need Aspirin: No Condition: Stable Instructions: Hypertension, Adult, [id number], Preventing Hypertension, Managing Your Hypertension, Hypertension, Adult, Hypertension (ED) Additional Instructions: Stay well-hydrated with water as we discussed. Work on your diet. And exercise daily as we discussed. Continue your home atenolol and HCTZ. Continue your home simvastatin. Follow-up with primary care for reevaluation. I have given you referral below should you need it. Follow-up with your computational theory scientist as planned this month. Referrals: RANJITH HAYES NP-C [Primary Care Provider] - 3-5 Days FRANCK VARNER MD [Staff Physician] - 3-5 Days ZAKIYA ANDRADE MD [Staff Physician] - 3-5 Days Time of Disposition: 12:03
== END 2020-07-27 12:21 | disposition home or self-care (01) ==
LOC: ED 08:55
DX: I10 Essential (primary) hypertension (principal); G40.909 Epilepsy, unspecified, not intractable, without status epilepticus; Z98.890 Other specified postprocedural states; Z79.899 Other long term (current) drug therapy
CPT/HCPCS: 36415; 71046; 80048; 84484; 85025; 93005